=== PATIENT | male | born 1955 | race Caucasian/White ===

== ENCOUNTER 2017-11-29 16:18 | Inpatient (IN) | payer MEDICARE, MEDICAID ==
[~2017-11-29] VITALS: Ht 193 cm; Wt 79.0 kg
[2017-11-29] MEDS ORDERED: ondansetron 4mg rapidly disintigrating tab PO ONE (16:35)
[2017-11-29] MEDS ORDERED: ipratropium/albuterol 3ml nebule NEB ONE (16:35)
[2017-11-29] MEDS ORDERED: normal saline 1000ML IV soln IVB ONE ×2 (16:35→20:50)
[2017-11-29 17:06] LABS: BASOPHILS % (AUTO) 0.2 % (0-1); EOSINOPHILS % (AUTO) 0.3 % (0-6); HEMATOCRIT 30.1 % (42.0-52.0); HEMOGLOBIN 10.5 g/dl (14.0-17.9); LYMPHOCYTES # (AUTO) 1.3 X10'3 (1.1-4.8); LYMPHOCYTES % (AUTO) 20.6 % (21-51); MEAN CORPUSCULAR HEMOGLOBIN 31.6 PG (27.0-31.0); MEAN CORPUSCULAR HGB CONC 34.7 % (33.0-36.5); MEAN CORPUSCULAR VOLUME 90.9 FL (78-98); MEAN PLATELET VOLUME 6.4 FL (7.4-10.4); MONOCYTES # (AUTO) 0.7 X10'3 (0-0.9); MONOCYTES % (AUTO) 10.7 % (2-12); NEUTROPHILS # (AUTO) 4.4 X10'3 (1.8-7.7); NEUTROPHILS % (AUTO) 68.2 % (42-75); PLATELET COUNT 388 X10'3 (140-440); RED BLOOD COUNT 3.32 X10'6 (4.70-6.10); RED CELL DISTRIBUTION WIDTH 14.2 % (11.5-14.5); WHITE BLOOD COUNT 6.5 X10'3 (4.5-11.0)
[2017-11-29 17:52] LABS: ETHANOL < 0.010 GM/DL (0.0-0.010)
[2017-11-29 17:58] LABS: ALANINE AMINOTRANSFERASE 29 U/L (12-78); ALBUMIN/GLOBULIN RATIO 0.9 (1.1-1.5); ANION GAP 8 (8-16); ASPARTATE AMINO TRANSFERASE 56 U/L (10-37); BILIRUBIN,TOTAL 0.4 MG/DL (0.1-1.0); BLOOD UREA NITROGEN 23 MG/DL (7-18); BUN/CREATININE RATIO 15.3 (5.4-32.0); CHLORIDE 94 MMOL/L (99-107); GLUCOSE 134 MG/DL (70-104); POTASSIUM 3.6 MMOL/L (3.5-5.1); SODIUM 129 MMOL/L (135-145); TOTAL CARBON DIOXIDE 27.1 MMOL/L (24-32); TOTAL PROTEIN 6.2 G/DL (6.4-8.2); VALPROATE < 3.0 UG/ML (50-100); eGFR 47 ML/MIN
[2017-11-29 17:59] LABS: ALKALINE PHOSPHATASE 73 IU/L (46-116)
[2017-11-29 20:16] LABS: URINE AMPHETAMINE SCREEN NEGATIVE (Neg); URINE BARBITUATE SCREEN NEGATIVE (Neg); URINE BENZODIAZEPINES SCREEN NEGATIVE (Neg); URINE CANNABINOID SCREEN POSITIVE (Neg); URINE COCAINE SCREEN NEGATIVE (Neg); URINE METHADONE SCREEN NEGATIVE (Neg); URINE OPIATE SCREEN NEGATIVE (Neg); URINE PHENCYCLIDINE SCREEN NEGATIVE (Neg)
[2017-11-29] MEDS ORDERED: TETanus/Pertussis (Acell)/Diphther VAC/PF (Tdap-Adult) 0.5ml syringe IMVAC ONE (20:55)
[2017-11-29] MEDS ORDERED: temazepam 15mg capsule PO PRN (21:00)
[2017-11-29 21:33] LABS: CLARITY,URINE CLEAR (Clear); GLUCOSE, URINE NEGATIVE (Neg); KETONES,URINE TRACE mg/dl (Neg); LEUKOCYTE ESTERASE ,URINE NEGATIVE (Neg); NITRITES, URINE NEGATIVE (Neg); OCCULT BLOOD,URINE NEGATIVE (Neg); PH,URINE 5.5 (4.8-8.0); PROTEIN,URINE NEGATIVE (Neg); UROBILINOGEN,URINE 0.2 E.U/dL (0.2-1.0)
[2017-11-29 21:35] LABS: UA COLLECTION TYPE CLN CATCH MIDSTREAM
[2017-11-29 21:36] LABS: COLOR,URINE DARK YELLOW (Yellow)
[2017-11-29] MEDS ORDERED: diphenhydrAMINE 50 mg/ml inj IV PRN (22:30)
[2017-11-29] MEDS ORDERED: HYDROmorphone 1 mg/ml syringe IV PRN ×2 (22:30)
[2017-11-29] MEDS ORDERED: bisacodyl 10mg suppository rectal RC PRN (22:30)
[2017-11-29] MEDS ORDERED: ondansetron/PF 4mg/2ml inj IV PRN (22:30)
[2017-11-29] MEDS ORDERED: mag hydrox/Alum hydrox/simeth 30ml oral suspension PO PRN (22:30)
[2017-11-29] MEDS ORDERED: insulin Lispro (HumaLOG) vial - multi-dose SQ SCH (22:30)
[2017-11-29] MEDS ORDERED: metoclopramide 5 mg/ml inj IV PRN (22:30)
[2017-11-29] MEDS ORDERED: diphenhydrAMINE 25mg capsule PO PRN (22:30)
[2017-11-29] MEDS ORDERED: dextrose 50%-water 50ml dispensing syringe IV PRN ×2 (22:30)
[2017-11-29] MEDS ORDERED: dextrose ORAL solution 15 GM/59 ML bottle PO PRN ×2 (22:30)
[2017-11-29] MEDS ORDERED: magnesium hydroxide 30ml (MOM) UD suspension PO PRN (22:30)
[2017-11-29] MEDS ORDERED: morphine 2 MG/ML inj. syringe IV PRN ×2 (22:30)
[2017-11-29] MEDS ORDERED: glucagon, human recombinant 1mg kit SUBCUT PRN (22:30)
[2017-11-29] MEDS ORDERED: acetaminophen 650mg rectal suppository RC PRN (22:30)
[2017-11-29] MEDS ORDERED: acetaminophen 325mg tablet PO PRN (22:30)
[2017-11-29] MEDS ORDERED: MESSAGE TO PHARMACY PO ONE (22:30)
[2017-11-29 22:54] LABS: HEMOGLOBIN A1C 5.4 % (4.5-6.2)
[2017-11-29 23:01] LABS: MAGNESIUM 1.5 MG/DL (1.5-2.4); PHOSPHORUS 3.5 MG/DL (2.3-4.5)
[2017-11-30] MEDS: normal saline 1000ml 1,000 ML IV SCH ×3 (02:04→18:29)
[2017-11-30 02:48] LABS: URINE AMPHETAMINE SCREEN NEGATIVE (Neg); URINE BARBITUATE SCREEN NEGATIVE (Neg); URINE BENZODIAZEPINES SCREEN NEGATIVE (Neg); URINE CANNABINOID SCREEN POSITIVE (Neg); URINE COCAINE SCREEN NEGATIVE (Neg); URINE METHADONE SCREEN NEGATIVE (Neg); URINE OPIATE SCREEN NEGATIVE (Neg); URINE PHENCYCLIDINE SCREEN NEGATIVE (Neg)
[2017-11-30] MEDS: heparin, porcine 5000 units/ml vial SQ SCH ×2 (07:13→20:20)
[2017-11-30] MEDS: pantoprazole 40mg Tablet.DR PO SCH (07:13)
[2017-11-30] MEDS: HYDROcodone/acetaminophen 5mg/325mg tablet PO PRN ×2 (07:14→15:25)
[2017-11-30] MEDS: nicotine 21mg patch - 24 hr TD SCH (07:14)
[2017-11-30] MEDS: docusate sod 100mg capsule PO SCH ×2 (07:14→20:20)
[2017-11-30] MEDS ORDERED: LORazepam 2 mg/ml vial IV PRN (08:00)
[2017-11-30 09:02] LABS: BASOPHILS % (AUTO) 0.4 % (0-1); EOSINOPHILS # (AUTO) 0.1 X10'3 (0-0.9); EOSINOPHILS % (AUTO) 2.6 % (0-6); HEMATOCRIT 28.7 % (42.0-52.0); HEMOGLOBIN 9.8 g/dl (14.0-17.9); LYMPHOCYTES # (AUTO) 1.2 X10'3 (1.1-4.8); LYMPHOCYTES % (AUTO) 21.8 % (21-51); MEAN CORPUSCULAR HEMOGLOBIN 31.2 PG (27.0-31.0); MEAN CORPUSCULAR HGB CONC 34.1 % (33.0-36.5); MEAN CORPUSCULAR VOLUME 91.7 FL (78-98); MEAN PLATELET VOLUME 6.7 FL (7.4-10.4); MONOCYTES # (AUTO) 0.5 X10'3 (0-0.9); MONOCYTES % (AUTO) 9.1 % (2-12); NEUTROPHILS # (AUTO) 3.7 X10'3 (1.8-7.7); NEUTROPHILS % (AUTO) 66.1 % (42-75); PLATELET COUNT 369 X10'3 (140-440); RED BLOOD COUNT 3.13 X10'6 (4.70-6.10); RED CELL DISTRIBUTION WIDTH 14.2 % (11.5-14.5); WHITE BLOOD COUNT 5.6 X10'3 (4.5-11.0)
[2017-11-30] MEDS: albuterol 2.5 MG/3 ML nebule NEB PRN ×2 (09:03→20:39)
[2017-11-30 09:25] LABS: ALANINE AMINOTRANSFERASE 29 U/L (12-78); ALBUMIN 2.5 G/DL (3.4-5.0); ALBUMIN/GLOBULIN RATIO 0.8 (1.1-1.5); ALKALINE PHOSPHATASE 58 IU/L (46-116); ANION GAP 6 (8-16); ASPARTATE AMINO TRANSFERASE 90 U/L (10-37); BILIRUBIN,TOTAL 0.5 MG/DL (0.1-1.0); BLOOD UREA NITROGEN 17 MG/DL (7-18); BUN/CREATININE RATIO 21.3 (5.4-32.0); CALCIUM 8.2 MG/DL (8.5-10.1); CHLORIDE 102 MMOL/L (99-107); GLUCOSE 91 MG/DL (70-104); POTASSIUM 3.9 MMOL/L (3.5-5.1); SODIUM 135 MMOL/L (135-145); TOTAL PROTEIN 5.5 G/DL (6.4-8.2); eGFR > 90 ML/MIN
[2017-11-30] MEDS ORDERED: DIVA500T7 PO (10:48)
[2017-11-30] MEDS ORDERED: SPIR25TA3 PO (10:48)
[2017-11-30] MEDS ORDERED: ALLO300T2 PO (10:49)
[2017-11-30] MEDS ORDERED: ALBU18HF2 INH (10:49)
[2017-11-30] MEDS ORDERED: DOCU250C4 PO (10:50)
[2017-11-30] MEDS ORDERED: ZIPR20CA2 PO (10:50)
[2017-11-30 15:00] VITALS: BP 136/80
[2017-11-30] MEDS ORDERED: morphine 5 MG/ML injection IV PRN ×2 (15:16)
[2017-11-30 20:00] VITALS: BP 131/74
[2017-11-30] MEDS ORDERED: insulin glargine (Lantus) pen - multi-dose SQ SCH (21:00)
[2017-11-30] MEDS: HYDROcodone/acetaminophen 10/325mg tab PO PRN (23:43)
[2017-12-01] VITALS: BP 132/74
[2017-12-01] MEDS: normal saline 1000ml 1,000 ML IV SCH (02:17)
[2017-12-01 06:00] VITALS: BP 145/88
[2017-12-01 06:12] LABS: BASOPHILS # (AUTO) 0.1 X10'3 (0-0.2); BASOPHILS % (AUTO) 1.2 % (0-1); EOSINOPHILS # (AUTO) 0.2 X10'3 (0-0.9); EOSINOPHILS % (AUTO) 4.2 % (0-6); HEMATOCRIT 28.7 % (42.0-52.0); HEMOGLOBIN 9.7 g/dl (14.0-17.9); LYMPHOCYTES # (AUTO) 1.6 X10'3 (1.1-4.8); MEAN CORPUSCULAR HEMOGLOBIN 31.2 PG (27.0-31.0); MEAN CORPUSCULAR HGB CONC 33.7 % (33.0-36.5); MEAN CORPUSCULAR VOLUME 92.4 FL (78-98); MEAN PLATELET VOLUME 6.9 FL (7.4-10.4); MONOCYTES # (AUTO) 0.5 X10'3 (0-0.9); NEUTROPHILS # (AUTO) 2.9 X10'3 (1.8-7.7); NEUTROPHILS % (AUTO) 55.6 % (42-75); PLATELET COUNT 385 X10'3 (140-440); RED CELL DISTRIBUTION WIDTH 14.5 % (11.5-14.5); WHITE BLOOD COUNT 5.2 X10'3 (4.5-11.0)
[2017-12-01 06:45] LABS: ALANINE AMINOTRANSFERASE 27 U/L (12-78); ALBUMIN 2.4 G/DL (3.4-5.0); ALBUMIN/GLOBULIN RATIO 0.8 (1.1-1.5); ALKALINE PHOSPHATASE 56 IU/L (46-116); ANION GAP 6 (8-16); ASPARTATE AMINO TRANSFERASE 64 U/L (10-37); BILIRUBIN,TOTAL 0.4 MG/DL (0.1-1.0); BLOOD UREA NITROGEN 13 MG/DL (7-18); BUN/CREATININE RATIO 18.6 (5.4-32.0); CALCIUM 8.2 MG/DL (8.5-10.1); CHLORIDE 103 MMOL/L (99-107); GLUCOSE 85 MG/DL (70-104); POTASSIUM 3.9 MMOL/L (3.5-5.1); SODIUM 135 MMOL/L (135-145); TOTAL CARBON DIOXIDE 26.5 MMOL/L (24-32); TOTAL PROTEIN 5.3 G/DL (6.4-8.2); eGFR > 90 ML/MIN
[2017-12-01] MEDS: albuterol 2.5 MG/3 ML nebule NEB PRN ×2 (07:15→19:46)
[2017-12-01] MEDS: pantoprazole 40mg Tablet.DR PO SCH (08:19)
[2017-12-01] MEDS: docusate sod 100mg capsule PO SCH ×2 (08:19→20:38)
[2017-12-01] MEDS: HYDROcodone/acetaminophen 10/325mg tab PO PRN ×2 (08:19→20:38)
[2017-12-01] MEDS: nicotine 21mg patch - 24 hr TD SCH (08:19)
[2017-12-01] MEDS: heparin, porcine 5000 units/ml vial SQ SCH (08:20)
[2017-12-01 12:00] VITALS: BP 142/73
[2017-12-01 20:00] VITALS: BP 152/85
[2017-12-02] MEDS ORDERED: HYDR-569 PO (04:54)
[2017-12-02] MEDS ORDERED: NICO-687 TD (04:54)
[2017-12-02] MEDS ORDERED: DULR RC (04:54)
[2017-12-02] MEDS ORDERED: TEMA15CA5 PO (04:54)
[2017-12-02] MEDS ORDERED: ALB0.5UD IH (04:54)
[2017-12-02] MEDS ORDERED: HYDR-565 PO (04:54)
[2017-12-02] MEDS ORDERED: DOCU100C38 PO (04:54)
[2017-12-02] MEDS ORDERED: PANT-47 PO (04:54)
[2017-12-02] MEDS ORDERED: DIPH25CA6 PO (04:54)
[2017-12-02] MEDS ORDERED: ALBU2.5V10 NEB (05:06)
== END 2017-12-01 22:30 | DRG 314 ==
LOC: ER 16:20 → ED HOLD 22:29 → EDBEDREQ 11-30 13:40 → MED 3N 11-30 15:15
PROVIDERS: ADMIT Family Medicine; ATTEND Internal Medicine
DX: I95.9 Hypotension, unspecified (principal); N17.0 Acute kidney failure with tubular necrosis; E87.1 Hypo-osmolality and hyponatremia; R45.851 Suicidal ideations; E11.9 Type 2 diabetes mellitus without complications; E86.0 Dehydration; E86.1 Hypovolemia; F29 Unspecified psychosis not due to a substance or known physiological condition; F32.9 Major depressive disorder, single episode, unspecified; I10 Essential (primary) hypertension; J44.9 Chronic obstructive pulmonary disease, unspecified; F12.90 Cannabis use, unspecified, uncomplicated; F17.210 Nicotine dependence, cigarettes, uncomplicated; S70.01XA Contusion of right hip, initial encounter; Z79.899 Other long term (current) drug therapy; W18.39XA Other fall on same level, initial encounter; Y93.89 Activity, other specified; Y92.89 Other specified places as the place of occurrence of the external cause; Y99.8 Other external cause status; Z71.6 Tobacco abuse counseling
CPT/HCPCS: 36415; 71045; 73502; 80053; 80164; 80305; 80320; 81003; 82948; 83036; 83605; 83690; 83735; 83880; 84100; 84145; 84443; 85025; 87040; 87070; 87502; 87503; 90471; 90715; 94640; 94760; 96360; 96361; 99285; A4353; J1644; J1815; J2060; J7030

== ENCOUNTER 2017-12-01 16:00 | Inpatient (IN) | payer MEDICARE, MEDICAID ==
[~2017-12-01] VITALS: Ht 188 cm; Wt 77.7 kg
[~2017-12-01 16:00] MED LIST: ALBU18HF2 INH; ALLO300T2 PO; DIVA500T7 PO; DOCU250C4 PO; SPIR25TA3 PO; ZIPR20CA2 PO
[2017-12-01] MEDS ORDERED: acetaminophen 325mg tablet PO PRN (22:40)
[2017-12-01] MEDS ORDERED: temazepam 15mg capsule PO PRN (22:40)
[2017-12-01] MEDS ORDERED: mag hydrox/Alum hydrox/simeth 30ml oral suspension PO PRN (22:40)
[2017-12-01] MEDS ORDERED: magnesium hydroxide 30ml (MOM) UD suspension PO PRN (22:40)
[2017-12-01] MEDS ORDERED: bisacodyl 10mg suppository rectal RC PRN (22:40)
[2017-12-01 23:17] VITALS: BP 141/93
[2017-12-02] MEDS: albuterol 2.5 MG/3 ML nebule NEB PRN ×5 (00:51→21:03)
[2017-12-02] MEDS: HYDROcodone/acetaminophen 10/325mg tab PO PRN ×2 (01:14→05:46)
[2017-12-02] MEDS ORDERED: NICO-687 TD (04:54)
[2017-12-02] MEDS ORDERED: HYDR-565 PO (04:54)
[2017-12-02] MEDS ORDERED: HYDR-569 PO (04:54)
[2017-12-02] MEDS ORDERED: DIPH25CA6 PO (04:54)
[2017-12-02] MEDS ORDERED: TEMA15CA5 PO (04:54)
[2017-12-02] MEDS ORDERED: PANT-47 PO (04:54)
[2017-12-02] MEDS ORDERED: DOCU100C38 PO (04:54)
[2017-12-02] MEDS ORDERED: DULR RC (04:54)
[2017-12-02] MEDS ORDERED: ALB0.5UD IH (04:54)
[2017-12-02] MEDS ORDERED: ALBU2.5V10 NEB (05:06)
[2017-12-02 07:50] VITALS: BP 147/78
[2017-12-02] MEDS: nicotine 21mg patch - 24 hr TD SCH (08:00)
[2017-12-02] MEDS ORDERED: thiamine 100mg/ml 2ml inj. IM ONE (08:05)
[2017-12-02] MEDS ORDERED: folic acid 1mg tablet PO ONE (08:05)
[2017-12-02] MEDS: docusate sod 100mg capsule PO SCH ×2 (08:41→20:25)
[2017-12-02] MEDS: pantoprazole 40mg Tablet.DR PO SCH (08:41)
[2017-12-02] MEDS: acetaminophen 325mg tablet PO PRN (11:53)
[2017-12-02 14:40] VITALS: BP 138/92
[2017-12-02 20:00] VITALS: BP 141/81
[2017-12-02] MEDS: thiamine 100mg tablet PO SCH (20:25)
[2017-12-02] MEDS: traZODone 50mg tablet PO SCH (20:25)
[2017-12-02] MEDS: HYDROcodone/acetaminophen 5mg/325mg tablet PO PRN (20:27)
[2017-12-02] MEDS: diphenhydrAMINE 25mg capsule PO PRN (20:27)
[2017-12-03] MEDS: HYDROcodone/acetaminophen 5mg/325mg tablet PO PRN ×3 (01:34→19:02)
[2017-12-03] MEDS: albuterol 2.5 MG/3 ML nebule NEB PRN ×4 (02:21→19:32)
[2017-12-03] MEDS: pantoprazole 40mg Tablet.DR PO SCH (07:18)
[2017-12-03 07:54] VITALS: BP 130/78
[2017-12-03] MEDS ORDERED: PALIPERIDONE 3 MG TAB.ER.24 PO SCH ×2 (08:00)
[2017-12-03] MEDS: folic acid 1mg tablet PO SCH (08:07)
[2017-12-03] MEDS: thiamine 100mg tablet PO SCH ×2 (08:07→20:30)
[2017-12-03] MEDS: spironolactone 25 MG tablet PO SCH (08:07)
[2017-12-03] MEDS: docusate sod 100mg capsule PO SCH ×2 (08:07→20:29)
[2017-12-03 08:09] LABS: CHOL/HDL RATIO 1.9 (0.00-4.99); CHOLESTEROL 122 MG/DL (0-200); HDL CHOLESTEROL 63 MG/DL (35-60); LDL CHOLESTEROL 49 MG/DL (50-100); TRIGLYCERIDES 66 MG/DL (20-135)
[2017-12-03] MEDS: nicotine 21mg patch - 24 hr TD SCH (08:59)
[2017-12-03 20:00] VITALS: BP 137/87
[2017-12-03 20:30] VITALS: BP 140/82
[2017-12-03] MEDS: traZODone 50mg tablet PO SCH (20:30)
[2017-12-03] MEDS: diphenhydrAMINE 25mg capsule PO PRN (20:30)
[2017-12-03 22:47] LABS: D-DIMER 1.43 MG/L FEU (0-0.50)
[2017-12-04] MEDS: HYDROcodone/acetaminophen 5mg/325mg tablet PO PRN ×3 (00:17→20:33)
[2017-12-04] MEDS ORDERED: enoxaparin 100mg/ml syringe SUBCUT ONE (00:35)
[2017-12-04] MEDS ORDERED: enoxaparin 80mg/0.8ml syringe SUBCUT ONE (00:45)
[2017-12-04 01:26] LABS: BASOPHILS % (AUTO) 0.3 % (0-1); EOSINOPHILS # (AUTO) 0.3 X10'3 (0-0.9); HEMATOCRIT 34.9 % (42.0-52.0); HEMOGLOBIN 11.7 g/dl (14.0-17.9); LYMPHOCYTES # (AUTO) 1.4 X10'3 (1.1-4.8); LYMPHOCYTES % (AUTO) 26.2 % (21-51); MEAN CORPUSCULAR HEMOGLOBIN 31.2 PG (27.0-31.0); MEAN CORPUSCULAR HGB CONC 33.6 % (33.0-36.5); MEAN CORPUSCULAR VOLUME 92.9 FL (78-98); MEAN PLATELET VOLUME 6.3 FL (7.4-10.4); MONOCYTES # (AUTO) 0.6 X10'3 (0-0.9); MONOCYTES % (AUTO) 11.7 % (2-12); NEUTROPHILS % (AUTO) 55.8 % (42-75); PLATELET COUNT 518 X10'3 (140-440); RED BLOOD COUNT 3.75 X10'6 (4.70-6.10); RED CELL DISTRIBUTION WIDTH 14.9 % (11.5-14.5); WHITE BLOOD COUNT 5.4 X10'3 (4.5-11.0)
[2017-12-04] MEDS: albuterol 2.5 MG/3 ML nebule NEB PRN ×5 (01:39→19:53)
[2017-12-04 01:43] LABS: ALANINE AMINOTRANSFERASE 29 U/L (12-78); ALBUMIN 3.2 G/DL (3.4-5.0); ALBUMIN/GLOBULIN RATIO 0.8 (1.1-1.5); ALKALINE PHOSPHATASE 92 IU/L (46-116); ANION GAP 3 (8-16); ASPARTATE AMINO TRANSFERASE 32 U/L (10-37); BILIRUBIN,TOTAL 0.3 MG/DL (0.1-1.0); BLOOD UREA NITROGEN 15 MG/DL (7-18); BUN/CREATININE RATIO 18.8 (5.4-32.0); CALCIUM 9.2 MG/DL (8.5-10.1); CHLORIDE 102 MMOL/L (99-107); GLUCOSE 95 MG/DL (70-104); POTASSIUM 3.9 MMOL/L (3.5-5.1); SODIUM 139 MMOL/L (135-145); TOTAL CARBON DIOXIDE 33.9 MMOL/L (24-32); eGFR > 90 ML/MIN
[2017-12-04] MEDS: diphenhydrAMINE 25mg capsule PO PRN ×2 (02:31→21:19)
[2017-12-04 07:05] VITALS: BP 120/80
[2017-12-04] MEDS: nicotine 21mg patch - 24 hr TD SCH (08:00)
[2017-12-04] MEDS ORDERED: enoxaparin 80mg/0.8ml syringe SUBCUT SCH (08:00)
[2017-12-04] MEDS: PALIPERIDONE 3 MG TAB.ER.24 PO SCH (08:24)
[2017-12-04] MEDS: docusate sod 100mg capsule PO SCH ×2 (08:24→20:32)
[2017-12-04] MEDS: thiamine 100mg tablet PO SCH ×2 (08:24→20:32)
[2017-12-04] MEDS: pantoprazole 40mg Tablet.DR PO SCH (08:24)
[2017-12-04] MEDS: folic acid 1mg tablet PO SCH (08:24)
[2017-12-04] MEDS: spironolactone 25 MG tablet PO SCH (08:42)
[2017-12-04] MEDS: Protein Smoothie (high protein) 240ml (8oz) cup PO SCH ×2 (13:00→18:17)
[2017-12-04] MEDS: nicotine 14mg patch - 24hr TD SCH (13:00)
[2017-12-04 19:41] VITALS: BP 153/81
[2017-12-04] MEDS: traZODone 50mg tablet PO SCH (20:32)
[2017-12-05] MEDS: HYDROcodone/acetaminophen 5mg/325mg tablet PO PRN ×3 (01:05→10:33)
[2017-12-05] MEDS: albuterol 2.5 MG/3 ML nebule NEB PRN ×4 (01:46→23:00)
[2017-12-05 08:00] VITALS: BP 90/57
[2017-12-05] MEDS: pantoprazole 40mg Tablet.DR PO SCH (08:37)
[2017-12-05] MEDS: nicotine 14mg patch - 24hr TD SCH (08:37)
[2017-12-05] MEDS: docusate sod 100mg capsule PO SCH ×2 (08:37→20:18)
[2017-12-05] MEDS: folic acid 1mg tablet PO SCH (08:37)
[2017-12-05] MEDS: thiamine 100mg tablet PO SCH ×2 (08:37→20:18)
[2017-12-05] MEDS: spironolactone 25 MG tablet PO SCH (08:37)
[2017-12-05] MEDS: PALIPERIDONE 3 MG TAB.ER.24 PO SCH (08:38)
[2017-12-05] MEDS: Protein Smoothie (high protein) 240ml (8oz) cup PO SCH ×3 (08:40→18:50)
[2017-12-05 19:11] VITALS: BP 132/84
[2017-12-05] MEDS: diphenhydrAMINE 25mg capsule PO PRN (19:20)
[2017-12-05] MEDS: traZODone 50mg tablet PO SCH (20:18)
[2017-12-06] MEDS: albuterol 2.5 MG/3 ML nebule NEB PRN ×3 (05:06→19:30)
[2017-12-06] MEDS: pantoprazole 40mg Tablet.DR PO SCH (07:54)
[2017-12-06] MEDS: docusate sod 100mg capsule PO SCH ×2 (07:55→20:25)
[2017-12-06] MEDS: folic acid 1mg tablet PO SCH (07:55)
[2017-12-06] MEDS: spironolactone 25 MG tablet PO SCH (07:55)
[2017-12-06] MEDS: PALIPERIDONE 3 MG TAB.ER.24 PO SCH (07:55)
[2017-12-06] MEDS: thiamine 100mg tablet PO SCH ×2 (07:55→20:25)
[2017-12-06] MEDS: nicotine 14mg patch - 24hr TD SCH (07:56)
[2017-12-06 08:00] VITALS: BP 135/79
[2017-12-06] MEDS: Protein Smoothie (high protein) 240ml (8oz) cup PO SCH ×3 (08:21→18:30)
[2017-12-06] MEDS: HYDROcodone/acetaminophen 5mg/325mg tablet PO PRN ×2 (09:07→20:25)
[2017-12-06 20:00] VITALS: BP 141/85
[2017-12-06] MEDS: traZODone 50mg tablet PO SCH (20:24)
[2017-12-06] MEDS: diphenhydrAMINE 25mg capsule PO PRN (20:30)
[2017-12-07] MEDS: albuterol 2.5 MG/3 ML nebule NEB PRN ×4 (00:20→18:37)
[2017-12-07] MEDS: docusate sod 100mg capsule PO SCH ×2 (07:49→20:50)
[2017-12-07] MEDS: pantoprazole 40mg Tablet.DR PO SCH (07:49)
[2017-12-07] MEDS: spironolactone 25 MG tablet PO SCH (07:50)
[2017-12-07] MEDS: folic acid 1mg tablet PO SCH (07:50)
[2017-12-07] MEDS: PALIPERIDONE 3 MG TAB.ER.24 PO SCH (07:50)
[2017-12-07] MEDS: thiamine 100mg tablet PO SCH ×2 (07:50→20:50)
[2017-12-07 08:00] VITALS: BP 130/86
[2017-12-07] MEDS: HYDROcodone/acetaminophen 5mg/325mg tablet PO PRN ×2 (08:04→20:51)
[2017-12-07] MEDS: nicotine 14mg patch - 24hr TD SCH (08:04)
[2017-12-07] MEDS: Protein Smoothie (high protein) 240ml (8oz) cup PO SCH ×3 (08:07→18:01)
[2017-12-07 19:35] VITALS: BP 121/89
[2017-12-07] MEDS: traZODone 50mg tablet PO SCH (20:50)
[2017-12-07] MEDS: diphenhydrAMINE 25mg capsule PO PRN (20:53)
[2017-12-08] MEDS: albuterol 2.5 MG/3 ML nebule NEB PRN ×4 (03:04→20:29)
[2017-12-08] MEDS: acetaminophen 325mg tablet PO PRN (03:04)
[2017-12-08] MEDS ORDERED: traZODone 50mg tablet PO ONE ×2 (03:30→22:20)
[2017-12-08 07:17] VITALS: BP 112/63
[2017-12-08] MEDS: pantoprazole 40mg Tablet.DR PO SCH (07:46)
[2017-12-08] MEDS: Protein Smoothie (high protein) 240ml (8oz) cup PO SCH ×3 (07:52→17:56)
[2017-12-08] MEDS: folic acid 1mg tablet PO SCH (08:44)
[2017-12-08] MEDS: docusate sod 100mg capsule PO SCH ×2 (08:44→20:06)
[2017-12-08] MEDS: spironolactone 25 MG tablet PO SCH (08:45)
[2017-12-08] MEDS: thiamine 100mg tablet PO SCH ×2 (08:45→20:06)
[2017-12-08] MEDS: PALIPERIDONE 3 MG TAB.ER.24 PO SCH (08:45)
[2017-12-08] MEDS: nicotine 14mg patch - 24hr TD SCH (08:49)
[2017-12-08] MEDS: HYDROcodone/acetaminophen 5mg/325mg tablet PO PRN ×2 (10:28→20:07)
[2017-12-08] MEDS ORDERED: TRAZ-143 PO (14:11)
[2017-12-08] MEDS ORDERED: NICO-631 TD (14:11)
[2017-12-08] MEDS ORDERED: SPIR25TA3 PO (14:11)
[2017-12-08] MEDS ORDERED: COL100C PO (14:11)
[2017-12-08] MEDS ORDERED: ALBU18HF2 INH (14:11)
[2017-12-08] MEDS ORDERED: PALI9TAB4 PO (14:11)
[2017-12-08 19:55] VITALS: BP 140/86
[2017-12-08] MEDS: traZODone 50mg tablet PO SCH (20:06)
[2017-12-08 20:30] VITALS: BP 140/84
[2017-12-09] MEDS: acetaminophen 325mg tablet PO PRN (00:58)
[2017-12-09] MEDS: albuterol 2.5 MG/3 ML nebule NEB PRN (01:17)
== END 2017-12-09 04:22 | disposition home or self-care (01) | DRG 885 ==
LOC: ADULT MH 16:00
PROVIDERS: ADMIT Psychiatry & Neurology Psychiatry; ATTEND Psychiatry & Neurology Psychiatry
DX: F29 Unspecified psychosis not due to a substance or known physiological condition (principal); R45.851 Suicidal ideations; E11.9 Type 2 diabetes mellitus without complications; F41.9 Anxiety disorder, unspecified; I10 Essential (primary) hypertension; J44.9 Chronic obstructive pulmonary disease, unspecified; M10.9 Gout, unspecified; F12.90 Cannabis use, unspecified, uncomplicated; F17.210 Nicotine dependence, cigarettes, uncomplicated; Z91.018 Allergy to other foods; Z79.899 Other long term (current) drug therapy; Z91.5 Personal history of self-harm; Z71.6 Tobacco abuse counseling
CPT/HCPCS: 36415; 80053; 80061; 82948; 85025; 85379; 87070; 93922; 93925; 93970; 94640; 94760; 97116; 97161; 97530; 99285; J1650; J3411; Q0163